=== PATIENT | female | born 1965 | race Caucasian/White ===

== ENCOUNTER → 2021-12-04 | Day surgery (SDC) | payer OTHER ==
[~2021-12-04] VITALS: Ht 157.4 cm; Wt 54.4 kg
[~2021-12-04] MED LIST: HORMONE; MOTRIN800 MG PO; PERCOCET 325 MG1 TA2 PO
[2021-12-04 08:16] VITALS: BP 110/68
[2021-12-04 09:00] VITALS: BP 114/63
[2021-12-04 09:15] VITALS: BP 112/76
[2021-12-04 09:30] VITALS: BP 117/75
[2021-12-04 09:45] VITALS: BP 112/74
[2021-12-04 09:56] VITALS: BP 119/74
== END | disposition home or self-care (01) ==
LOC: SDC 11-29 12:30
PROVIDERS: ATTEND Specialist
DX: H65.493 Other chronic nonsuppurative otitis media, bilateral (principal); H69.83 Other specified disorders of Eustachian tube, bilateral; Z98.890 Other specified postprocedural states